=== PATIENT | female | born 1965 | race Caucasian/White ===

== ENCOUNTER → 2016-03-06 | Outpatient (CLI) | payer BC ==
[~2016-03-06] MED LIST: AMBIEN 10MG10 MG PO; AMITRIPTYLINE H75 M1 PO; AMITRIPTYLINE50 MG PO; ASPIRIN 81M81 MG/TA2 PO; ASPRIN; ATIVAN 0.50.5 MG/TAB PO; CARDI-OMEGA1000 MG PO; CETIRIZINE; CYMBALTA; CYMBALTA 60MG60 MG PO; DEPAKOTE500 MG PO; DESYREL 100MG100 MG PO; DILAUDID 2MG TAB2 MG PO; DILAUDID 4MG TAB4 MG PO; DURADRIN; EFFEXOR 75M75 MG/TAB PO; ESGIC; EXCEDRIN1 TAB PO; FIORICET 325 MG1 TA1 PO; FIORICET 325 MG1 TAB PO; FLEXERIL 1010 MG/TAB PO; FLEXERIL10 MG PO; KEPPRA 500MG500 MG PO; KETOROLAC TROME10 MG; LAMISIL250 M1 PO; LEVOTHROID0.125 MG PO; LEVOTHYROXINE0.1 MG PO; LEVOXYL; LEVOXYL0.075 MG PO; LEVOXYL0.088 MG PO; LOPRESSOR; LORTAB 10/500 51 TAB; LORTAB 10/500 51 TAB PO; LORTAB ELIX0.5 MG/ML; MAG-OX 400400 MG/TAB PO; MAGNESIUM OXIDE; MAXALT5 MG PO; MIDRIN; MIDRIN 325 MG-11 CAP; MIDRIN 325 MG-11 CAP PO; MIDRIN CAPSULE1 CAP PO; MILK OF MA400 MG/5 M PO; MILK OF MA400 MG/51 PO; NIASPAN 500MG500 MG PO; NIASPAN1000 MG PO; NIASPAN500 MG PO; NORCO 325 MG-101 TAB PO; PHENERGAN 25 TA25 MG PO; PROPRANOLOL HCL40 MG PO; REGLAN 10MG10 MG/TAB PO; REMERON 15M15 MG/TA1 PO; ROXICODONE 55 MG/TAB PO; SAVELLA50 MG PO; SINGULAIR10 MG PO; SOMA250 MG PO; SYNTHROID 0.10.15 MG PO; THORAZINE100 MG/TAB PO; TOPAMAX 100MG100 M1 PO; TOPAMAX 100MG100 MG PO; TOPIRAMATE; TOPROL XL100 MG PO; TRAZADONE; TRICOR145 MG PO; ULTRACET 325 MG1 TAB PO; VALIUM 2MG T2 MG/TAB PO; ZANAFLEX4 M1 PO; ZOFRAN 4MG T4 MG/TAB PO; ZONEGRAN 100MG100 MG PO; ZYRTEC 10MG PO; [UNRECOGNIZED DRUG - OTHER]; [UNRECOGNIZED DRUG - OTHER] PO
== END ==
LOC: COL.RAD 12:37
DX: R42 Dizziness and giddiness (principal); R41.3 Other amnesia

== ENCOUNTER → 2016-03-14 | Outpatient (CLI) | payer BC | LOC: COL.CARD 13:55 | DX: R42 Dizziness and giddiness (principal); R41.3 Other amnesia ==

== ENCOUNTER 2017-02-14 19:04 | Emergency (ER) | payer BC ==
[2008-11-04 00:16] VITALS: BP 112/62
[~2017-02-14] VITALS: Ht 162.6 cm; Wt 54.5 kg
[2017-02-14 19:07] VITALS: TEMP 99
[2017-02-14 20:48] VITALS: BP 117/77; PULSE 99
== END 2017-02-14 20:54 | disposition home or self-care (01) ==
LOC: COL.ER 19:04
DX: G43.909 Migraine, unspecified, not intractable, without status migrainosus (principal); F32.9 Major depressive disorder, single episode, unspecified; E03.9 Hypothyroidism, unspecified; E78.5 Hyperlipidemia, unspecified; F12.90 Cannabis use, unspecified, uncomplicated; Z86.73 Personal history of transient ischemic attack (TIA), and cerebral infarction without residual deficits
CPT/HCPCS: J1200; J1885; J2765; J7030

== ENCOUNTER 2017-03-22 23:42 | Emergency (ER) | payer BC ==
[2008-11-04 00:16] VITALS: BP 112/62
[~2017-03-22] VITALS: Ht 162.6 cm; Wt 56.8 kg
[2017-03-22 23:46] VITALS: BP 145/70; TEMP 97.8
[2017-03-23] MEDS ORDERED: DEPAKENE250 MG PO (00:26)
[2017-03-23] MEDS ORDERED: SEROQUEL 2525 MG/TAB PO (00:26)
[2017-03-23] MEDS ORDERED: TOPAMAX 100MG100 M1 PO (00:26)
[2017-03-23] MEDS ORDERED: TORADOL 10MG TA10 MG PO (00:27)
[2017-03-23] MEDS ORDERED: AMOXICILLIN 8751 TAB PO (03:07)
[2017-03-23] MEDS ORDERED: NORCO 325 MG-51 TAB PO (03:07)
[2017-03-23 03:49] VITALS: PULSE 80
== END 2017-03-23 03:53 | disposition home or self-care (01) ==
LOC: COL.ER 23:42
DX: S01.81XA Laceration without foreign body of other part of head, initial encounter (principal); S01.412A Laceration without foreign body of left cheek and temporomandibular area, initial encounter; F41.9 Anxiety disorder, unspecified; E03.9 Hypothyroidism, unspecified; G43.909 Migraine, unspecified, not intractable, without status migrainosus; Z23 Encounter for immunization; W54.0XXA Bitten by dog, initial encounter; Y92.009 Unspecified place in unspecified non-institutional (private) residence as the place of occurrence of the external cause
CPT/HCPCS: J0295; J1170

== ENCOUNTER 2017-03-31 13:41 | Emergency (ER) | payer BC ==
[~2017-03-31 13:41] MED LIST changes: +AMOXICILLIN 8751 TAB PO; +DEPAKENE250 MG PO; +NORCO 325 MG-51 TAB PO; +SEROQUEL 2525 MG/TAB PO; +TORADOL 10MG TA10 MG PO
[2017-03-31 13:44] VITALS: BP 100/57; PULSE 99; TEMP 98.1
== END 2017-03-31 13:52 | disposition home or self-care (01) ==
LOC: COL.ER 13:41
DX: S01.412D Laceration without foreign body of left cheek and temporomandibular area, subsequent encounter (principal); S01.81XD Laceration without foreign body of other part of head, subsequent encounter; X58.XXXD Exposure to other specified factors, subsequent encounter

== ENCOUNTER → 2017-12-07 | Outpatient (CLI) | payer BC | LOC: MC.RAD 11:32 | DX: Z12.31 Encounter for screening mammogram for malignant neoplasm of breast (principal); N64.89 Other specified disorders of breast ==

== ENCOUNTER → 2017-12-19 | Outpatient (CLI) | payer BC | LOC: MC.RAD 12:55 | DX: N64.89 Other specified disorders of breast (principal) | CPT/HCPCS: G0279 ==

== ENCOUNTER → 2018-08-01 | Outpatient (CLI) | payer BC | LOC: MC.RAD 13:30 | DX: N64.89 Other specified disorders of breast (principal) | CPT/HCPCS: G0279 ==

== ENCOUNTER 2020-03-17 10:43 | Emergency (ER) | payer BC ==
[2008-11-04 00:16] VITALS: BP 112/62
[~2020-03-17] VITALS: Ht 162.6 cm; Wt 63.2 kg
[2020-03-17 10:56] VITALS: TEMP 97.9
[2020-03-17 12:52] VITALS: BP 115/75; PULSE 80
== END 2020-03-17 12:52 | disposition home or self-care (01) ==
LOC: COL.ER 10:43
DX: G43.909 Migraine, unspecified, not intractable, without status migrainosus (principal); F32.9 Major depressive disorder, single episode, unspecified; E78.5 Hyperlipidemia, unspecified; Z88.1 Allergy status to other antibiotic agents
CPT/HCPCS: J0595; J1200; J1885; J2405; J7030

== ENCOUNTER 2020-06-14 11:33 | Emergency (ER) | payer BC ==
[2008-11-04 00:16] VITALS: BP 112/62
[~2020-06-14] VITALS: Ht 162.6 cm; Wt 59.1 kg
[2020-06-14 11:41] VITALS: TEMP 98.6
[2020-06-14 14:20] VITALS: BP 91/59; PULSE 81
== END 2020-06-14 14:20 | disposition home or self-care (01) ==
LOC: COL.ER 11:33
DX: R51.9 Headache, unspecified (principal); Z88.1 Allergy status to other antibiotic agents; Z79.891 Long term (current) use of opiate analgesic
CPT/HCPCS: J1200; J1630; J1885; J2765; J7030

== ENCOUNTER → 2020-06-22 | Outpatient (CLI) | payer BC | LOC: COL.VAS 14:29 | DX: I34.0 Nonrheumatic mitral (valve) insufficiency (principal) ==

== ENCOUNTER → 2020-07-14 | Outpatient (CLI) | payer BC | LOC: COL.CARD 12:19 | DX: R56.9 Unspecified convulsions (principal) ==

== ENCOUNTER 2021-06-22 20:45 | Emergency (ER) | payer SELFPAY ==
[~2021-06-22] VITALS: Ht 162.6 cm; Wt 60.0 kg
[2021-06-22 21:08] VITALS: TEMP 97
[2021-06-23] MEDS ORDERED: NORCO 325 MG-51 TAB PO (01:00)
[2021-06-23 01:11] VITALS: BP 100/70; PULSE 74
== END 2021-06-23 01:11 | disposition home or self-care (01) ==
LOC: COL.ER 20:45
DX: R51.9 Headache, unspecified (principal); Z86.69 Personal history of other diseases of the nervous system and sense organs
CPT/HCPCS: J0780; J1200; J1885; J2270; J2405; J7030

== ENCOUNTER 2023-05-09 18:18 | Emergency (ER) | payer OTHER ==
[~2023-05-09] VITALS: Ht 162.6 cm; Wt 56.8 kg
[~2023-05-09 18:18] MED LIST changes: +COMPAZINE 110 MG/TAB PO; +DEPAKOTE 250MG250 MG PO; +EFFEXOR XR75 MG/CAP PO; +FLORINEF ACETA0.1 MG PO; +FOLIC ACID 40400 MCG PO; +IMODIUM 2MG CAPS2 MG PO; -LEVOXYL0.088 MG PO; +PAXLOVID CO-PA1 EACH PO; +PHOSPHA 250 NEU1 TAB PO; +QULIPTA60 MG PO; +SYNTHROID0.1 MG/TAB PO; +TOPAMAX 25MG25 M1 PO; +VITAMIND3 5000 PO
[2023-05-09] MEDS ORDERED: Ketorolac 30 MG/ML VIAL IV ONE (18:45)
[2023-05-09] MEDS ORDERED: NS 1,000 ML IV ONE (18:45)
[2023-05-09] MEDS ORDERED: diphenhydrAMINE 50 MG/ML 1 ML VIAL IV ONE (18:45)
[2023-05-09] MEDS ORDERED: dexAMETHasone 10 MG/ML VIAL IV ONE (18:45)
[2023-05-09] MEDS ORDERED: droPERidol 2.5 MG/ML 2 ML VIAL IV ONE (19:45)
[2023-05-09 21:18] VITALS: BP 104/57; PULSE 83; TEMP 98.4
== END 2023-05-09 21:18 | disposition home or self-care (01) ==
LOC: COL.ER 18:18
DX: G43.909 Migraine, unspecified, not intractable, without status migrainosus (principal)
CPT/HCPCS: J1100; J1200; J1790; J1885; J2765; J3475; J7030